=== PATIENT | female | born 1955 | race Two or more races ===

== ENCOUNTER 2021-07-29 08:15 | Inpatient (IN) | payer MEDICARE, MEDICAID ==
[~2021-07-29] VITALS: Ht 170.2 cm; Wt 54.4 kg
[2021-07-29] MEDS ORDERED: SODIUM CHLORIDE 0.9% 1,000 ML IV ONE (08:45)
[2021-07-29 09:01] LABS: Basophils # (auto) 0.1 10 ^3/uL (0-0.2); Basophils % (auto) 1.4 % (0.0-2.0); Eosinophils # (auto) 0.2 10 ^3/uL (0-0.8); Eosinophils % (auto) 2.7 % (0.0-7.0); Hematocrit 42.4 % (36.0-46.0); Lymphocytes # (auto) 3.2 10 ^3/uL (0.4-5.4); Lymphocytes % (auto) 48.4 % (10.0-50.0); Mean Corpuscular Hemoglobin 27.8 pg (28.0-32.0); Mean Corpuscular Volume 84.1 fL (80.0-100.0); Monocytes # (auto) 0.3 10 ^3/uL (0-1.3); Monocytes % (auto) 4.1 % (0.0-12.0); Neutrophils # (auto) 2.9 10 ^3/uL (1.6-8.6); Neutrophils % (auto) 43.4 % (37.0-80.0); Nucleated Red Blood Cells % 0.2 %; Red Blood Cells 5.04 10^6/uL (4.0-5.20); Red Cell Distribution Width 15.2 % (11.8-14.3); White Blood Cell 6.6 10^3/uL (4.4-10.8)
[2021-07-29 09:08] LABS: Alanine Aminotransferase 75 U/L (13-56); Albumin 2.3 g/dL (3.4-5.0); Anion Gap 7 (5-15); Aspartate Aminotransferase 79 U/L (15-37); BUN/Creatinine Ratio 19.2; Blood Urea Nitrogen 14 mg/dL (7-18); Calcium 8.4 mg/dL (8.5-10.1); Carbon Dioxide 21 mmol/L (21-32); Chloride 107 mmol/L (98-107); GFR African American 103 mL/min; GFR Non-African American 85 mL/min; Glucose 166 mg/dL (74-106); Potassium 3.8 mmol/L (3.5-5.1); Sodium 135 mmol/L (136-145)
[2021-07-29 09:14] LABS: Alkaline Phosphatase 193 U/L (45-117); Bilirubin, Total 0.5 mg/dL (0.2-1.0); Total Protein 6.9 g/dL (6.4-8.2)
[2021-07-29 10:15] LABS: Urine WBC None Seen /hpf (0 - 5)
[2021-07-29 10:36] LABS: Urine Bacteria NONE SEEN /hpf (None Seen); Urine Blood Negative /uL (Negative); Urine Specific Gravity 1.008 (1.001-1.035)
[2021-07-29] MEDS ORDERED: DEXTROSE (50%) 50ML SYRG IV ONE (11:15)
[2021-07-29] MEDS ORDERED: ONDANSETRON HCL 4 MG/2 ML VIAL IV PRN (12:30)
[2021-07-29] MEDS ORDERED: D5W/SOD CHL 0.45% 1,000 ML IV SCH (12:30)
[2021-07-29] MEDS ORDERED: ACETAMINOPHEN 500 MG TAB PO PRN (12:30)
[2021-07-29] MEDS ORDERED: DOCUSATE SOD 100 MG CAP PO PRN (12:30)
[2021-07-29] MEDS ORDERED: MORPHINE SULFATE INJECTION 2 MG/ML SYRG IV PRN (12:30)
[2021-07-29] MEDS ORDERED: HYDROcodone-ACET 5/325MG TAB PO PRN (12:30)
[2021-07-29] MEDS ORDERED: NITROGLYCERIN 0.4 MG SL TAB SL PRN (12:30)
[2021-07-29 12:41] VITALS: BP 157/75
[2021-07-29] MEDS: ACCU-CHEK COMFORT CURVE STRIP VI SCH ×3 (14:04→22:03)
[2021-07-29] MEDS: D5W/SOD CHL 0.45% 1,000 ML IV SCH (18:11)
[2021-07-29] MEDS: IPRATROPIUM BROM 0.5 MG/2.5ML INH SOL NEB PRN (21:05)
[2021-07-29] MEDS: ALBUTEROL SULF 2.5 MG/0.5ML(0.5%) NEB SOLN NEB PRN (21:05)
[2021-07-30] MEDS: ACCU-CHEK COMFORT CURVE STRIP VI SCH ×5 (02:00→20:00)
[2021-07-30 05:00] VITALS: BP 131/84
[2021-07-30] MEDS: D5W/SOD CHL 0.45% 1,000 ML IV SCH (07:20)
[2021-07-30 09:00] VITALS: BP 146/89
[2021-07-30] MEDS: PANTOPRAZOLE 40 MG TAB PO SCH (10:20)
[2021-07-30] MEDS: MORPHINE SULFATE INJECTION 2 MG/ML SYRG IV PRN ×2 (10:20→21:05)
[2021-07-30] MEDS: IPRATROPIUM BROM 0.5 MG/2.5ML INH SOL NEB PRN ×2 (12:10→21:35)
[2021-07-30] MEDS: ALBUTEROL SULF 2.5 MG/0.5ML(0.5%) NEB SOLN NEB PRN ×2 (12:10→21:35)
[2021-07-30] MEDS ORDERED: DEXTROSE (50%) 50ML SYRG IV PRN (12:45)
[2021-07-30 13:00] VITALS: BP 148/84
[2021-07-30] MEDS: InsuLIN REG 1unit/0.01ml Soln (100units/ml) SC SCH ×2 (16:00→20:45)
[2021-07-30 17:00] VITALS: BP 135/90
[2021-07-30 22:00] VITALS: BP 153/77
[2021-07-31] MEDS: InsuLIN REG 1unit/0.01ml Soln (100units/ml) SC SCH ×5 (04:00→16:00)
[2021-07-31] MEDS: ACCU-CHEK COMFORT CURVE STRIP VI SCH ×5 (04:00→16:00)
[2021-07-31 04:54] VITALS: BP 151/84
[2021-07-31] MEDS: ALBUTEROL SULF 2.5 MG/0.5ML(0.5%) NEB SOLN NEB PRN (07:16)
[2021-07-31] MEDS: IPRATROPIUM BROM 0.5 MG/2.5ML INH SOL NEB PRN (07:16)
[2021-07-31] MEDS: PANTOPRAZOLE 40 MG TAB PO SCH (08:55)
[2021-07-31] MEDS: MORPHINE SULFATE INJECTION 2 MG/ML SYRG IV PRN (08:58)
[2021-07-31 09:00] VITALS: BP 154/83
[2021-07-31 13:00] VITALS: BP 144/87
[2021-07-31 15:01] VITALS: BP 144/87
== END 2021-07-31 16:06 | disposition home or self-care (01) | DRG 420 ==
LOC: ER 08:15 → EDBD 08:15 → TELE 12:18 → TELE-WESTW 22:11
PROVIDERS: ADMIT Nurse Practitioner Acute Care; ATTEND Family Medicine
DX: E11.649 Type 2 diabetes mellitus with hypoglycemia without coma (principal); E43 Unspecified severe protein-calorie malnutrition; C22.0 Liver cell carcinoma; I67.2 Cerebral atherosclerosis; J44.1 Chronic obstructive pulmonary disease with (acute) exacerbation; I10 Essential (primary) hypertension; E78.5 Hyperlipidemia, unspecified; E78.00 Pure hypercholesterolemia, unspecified; Z20.822 Contact with and (suspected) exposure to COVID-19; F17.200 Nicotine dependence, unspecified, uncomplicated; Z79.4 Long term (current) use of insulin; Z85.05 Personal history of malignant neoplasm of liver; Z68.1 Body mass index [BMI] 19.9 or less, adult; Z71.6 Tobacco abuse counseling; Z08 Encounter for follow-up examination after completed treatment for malignant neoplasm
CPT/HCPCS: 36415; 70450; 71045; 80053; 81001; 82962; 83036; 84484; 85025; 87426; 93005; 94640; 96361; 96374; 99291; G0378; J1815

== ENCOUNTER 2022-08-17 20:01 | Inpatient (IN) | payer MEDICARE, MEDICAID ==
[~2022-08-17] VITALS: Ht 167.6 cm; Wt 52.5 kg
[2022-08-17] MEDS ORDERED: SODIUM CHLORIDE 0.9% 1,000 ML IVB ONE (20:30)
[2022-08-17] MEDS ORDERED: ONDANSETRON HCL 4 MG/2 ML VIAL IV ONE (20:30)
[2022-08-17 20:59] LABS: Hematocrit 40.9 % (36.0-46.0); Hemoglobin 13.6 g/dL (12.2-16.2); Mean Corpuscular Hemoglobin 27.8 pg (28.0-32.0); Mean Corpuscular Hgb Conc. 33.3 g/dL (32.0-36.0); Mean Corpuscular Volume 83.4 fL (80.0-100.0); Red Blood Cells 4.91 10^6/uL (4.0-5.20); Red Cell Distribution Width 15.6 % (11.8-14.3); White Blood Cell 5.3 10^3/uL (4.4-10.8)
[2022-08-17 21:03] LABS: Basophils % (manual) 0 (0.0-2.0); Blast Cells 0; Metamyelocytes % 0; Myelocytes % 0; Promyelocytes % 0; Reactive Lymphocytes 0
[2022-08-17 21:15] LABS: Albumin 2.1 g/dL (3.4-5.0); Calcium 8.3 mg/dL (8.5-10.1); Potassium 4.1 mmol/L (3.5-5.1)
[2022-08-17 21:17] LABS: BUN/Creatinine Ratio 12.1
[2022-08-17 21:20] LABS: Bilirubin, Total 1.4 mg/dL (0.2-1.0); Total Protein 7.3 g/dL (6.4-8.2)
[2022-08-17] MEDS ORDERED: cloNIDine HCL 0.1 MG TAB PO ONE (21:30)
[2022-08-17 21:33] LABS: Band Neutrophils % (manual) 1; Eosinophils % (manual) 4 (0-7); Lymphocytes % (manual) 47 (10.0-50.0); Monocytes % (manual) 5 (0-12)
[2022-08-17] MEDS ORDERED: ONDANSETRON HCL 4 MG/2 ML VIAL IV PRN (23:15)
[2022-08-17] MEDS ORDERED: NITROGLYCERIN 0.4 MG SL TAB SL PRN (23:15)
[2022-08-17] MEDS ORDERED: TEMAZEPAM 15 MG CAP PO PRN (23:15)
[2022-08-17] MEDS ORDERED: DEXTROSE (50%) 50ML SYRG IV PRN (23:15)
[2022-08-17] MEDS ORDERED: METOPROLOL TARTRATE 25 MG TAB PO ONE (23:15)
[2022-08-17] MEDS ORDERED: MORPHINE SULFATE INJ 2 MG/ml SYRG IV PRN (23:15)
[2022-08-18] MEDS: cloNIDine HCL 0.1 MG TAB PO PRN (04:15)
[2022-08-18 05:20] LABS: Urine Bacteria FEW /hpf (None Seen); Urine Blood 1+ /uL (Negative); Urine Specific Gravity 1.016 (1.001-1.035); Urine WBC 3 /hpf (0 - 5)
[2022-08-18 05:26] LABS: Alcohol, Urine < 3.0 mg/dL (0-10); Amphetamine Screen, Urine NEGATIVE (NEGATIVE); Benzodiazephine Screen, Urine NEGATIVE (NEGATIVE); Cannabinoid Screen, Urine POSITIVE (NEGATIVE); Cocaine Screen, Urine NEGATIVE (NEGATIVE); Opiate Scree,Urine NEGATIVE (NEGATIVE); Phencyclidine Screen, Urine NEGATIVE (NEGATIVE)
[2022-08-18 05:34] LABS: Barbiturate Scree,Urine NEGATIVE (NEGATIVE)
[2022-08-18 06:04] LABS: Albumin 1.7 g/dL (3.4-5.0); Calcium 7.5 mg/dL (8.5-10.1); Potassium 4.4 mmol/L (3.5-5.1)
[2022-08-18 06:10] LABS: BUN/Creatinine Ratio 14.9; Bilirubin, Total 0.8 mg/dL (0.2-1.0); Total Protein 5.8 g/dL (6.4-8.2)
[2022-08-18 06:20] LABS: Hematocrit 32.5 % (36.0-46.0); Hemoglobin 10.6 g/dL (12.2-16.2); Mean Corpuscular Hemoglobin 27.6 pg (28.0-32.0); Mean Corpuscular Hgb Conc. 32.7 g/dL (32.0-36.0); Mean Corpuscular Volume 84.4 fL (80.0-100.0); Red Blood Cells 3.85 10^6/uL (4.0-5.20); Red Cell Distribution Width 15.6 % (11.8-14.3); White Blood Cell 5.8 10^3/uL (4.4-10.8)
[2022-08-18] MEDS: ACCU-CHEK COMFORT CURVE STRIP VI SCH ×4 (06:24→21:58)
[2022-08-18 06:34] LABS: Band Neutrophils % (manual) 0; Basophils % (manual) 0 (0.0-2.0); Blast Cells 0; Metamyelocytes % 0; Myelocytes % 0; Promyelocytes % 0
[2022-08-18] MEDS: InsuLIN REG 1unit/0.01ml Soln (100units/ml) SC SCH ×4 (06:42→21:58)
[2022-08-18 07:48] LABS: Eosinophils % (manual) 2 (0-7); Lymphocytes % (manual) 43 (10.0-50.0); Monocytes % (manual) 2 (0-12); Reactive Lymphocytes 6
[2022-08-18] MEDS: LISINOPRIL 10 MG TAB PO SCH (09:05)
[2022-08-18] MEDS: traMADol HCL 50 MG TAB PO PRN ×2 (11:25→23:29)
[2022-08-18 17:37] VITALS: BP 166/85
[2022-08-18 17:57] VITALS: BP 166/85
[2022-08-18 20:00] VITALS: BP 139/85
[2022-08-18 22:00] VITALS: BP 139/85
[2022-08-19] MEDS: cloNIDine HCL 0.1 MG TAB PO PRN (04:41)
[2022-08-19 05:00] VITALS: BP 188/110
[2022-08-19] MEDS: ACCU-CHEK COMFORT CURVE STRIP VI SCH ×2 (06:11→11:50)
[2022-08-19] MEDS: InsuLIN REG 1unit/0.01ml Soln (100units/ml) SC SCH ×2 (06:12→11:30)
[2022-08-19] MEDS: traMADol HCL 50 MG TAB PO PRN ×2 (06:12→13:15)
[2022-08-19 08:56] VITALS: BP 162/80
[2022-08-19] MEDS: LISINOPRIL 10 MG TAB PO SCH (09:30)
[2022-08-19] MEDS ORDERED: CARVEDILOL 12.5 MG TAB PO ONE (11:00)
[2022-08-19] MEDS ORDERED: LISINOPRIL 10 MG TAB PO SCH (11:00)
[2022-08-19] MEDS ORDERED: CAR125T PO (11:02)
[2022-08-19] MEDS ORDERED: LISI-716 PO (11:02)
[2022-08-19] MEDS ORDERED: AMLO-496 PO (11:02)
[2022-08-19] MEDS ORDERED: INSUINJ2 SC (11:32)
[2022-08-19] MEDS ORDERED: GLIM-6 GT (11:32)
[2022-08-19 12:42] VITALS: BP 181/86
[2022-08-19 13:14] VITALS: BP 157/87
[2022-08-19] MEDS ORDERED: amLODIPine BESYLATE 5 MG TAB PO ONE ×2 (13:23→13:45)
[2022-08-19 15:16] VITALS: BP 150/84
[2022-08-19] MEDS ORDERED: CARVEDILOL 12.5 MG TAB PO SCH (22:00)
[2022-08-20] MEDS ORDERED: amLODIPine BESYLATE 5 MG TAB PO SCH (10:00)
== END 2022-08-19 15:20 | disposition home or self-care (01) | DRG 251 ==
LOC: EDBD 20:01 → ER 20:02 → OVERFLOW 23:18 → WEST WING 08-18 17:32
PROVIDERS: ADMIT Nurse Practitioner; ATTEND Student in an Organized Health Care Education/Training Program
DX: R10.9 Unspecified abdominal pain (principal); C22.9 Malignant neoplasm of liver, not specified as primary or secondary; K76.6 Portal hypertension; R18.8 Other ascites; K74.60 Unspecified cirrhosis of liver; K76.9 Liver disease, unspecified; E11.9 Type 2 diabetes mellitus without complications; Z20.822 Contact with and (suspected) exposure to COVID-19; I10 Essential (primary) hypertension; I16.0 Hypertensive urgency; J44.9 Chronic obstructive pulmonary disease, unspecified; Z82.49 Family history of ischemic heart disease and other diseases of the circulatory system
CPT/HCPCS: 36415; 74176; 76700; 80053; 80307; 80320; 81001; 82105; 82150; 82378; 82962; 83690; 84484; 85007; 85027; 87426; 96361; 96374; G0378; J1815; J2405